=== PATIENT | male | born 1965 | race Caucasian/White ===

== ENCOUNTER → 2018-07-28 09:13 | Outpatient (CLI) | payer OTHER, SELFPAY ==
--- NOTE | 2018-07-28 | DI.MRI.S_ITS ---
PROCEDURE: MR SHOULDER LT WO CON INDICATIONS: LT SHOULDER PAIN TECHNIQUE: Noncontrast oblique coronal T2 fast spin echo with fat saturation, oblique sagittal T1 spin echo and T2 fast spin echo with fat saturation, axial T1 spin echo and T2 fast spin echo with fat saturation through the shoulder. COMPARISON: None. FINDINGS: Image quality: Excellent. Rotator cuff: The supraspinatus, infraspinatus, and subscapularis tendons appear free of destruction throughout but there is elevated focal T2 signal along the undersurface of the lateral supraspinatus tendon, indicating partial thickness tear in that area. For example, see series 8 image 11. Sagittal images demonstrate no muscle atrophy. Bones and bursae: No bone marrow contusions or fractures. There is moderately severe to severe acromioclavicular joint degeneration, and also moderate glenohumeral joint osteoarthritis.. The acromion demonstrates conventional anatomy, without an os acromiale. No pathologic subacromial-subdeltoid or subcoracoid bursal fluid is present. Capsule and soft tissues: In the absence of intra-articular contrast, the labrum and glenohumeral ligaments appear intact. The long head of the biceps tendon demonstrates normal location and morphology. The rotator interval appears normal, without fibrosis. The coracohumeral ligament is normal in thickness. IMPRESSION: Moderately severe to severe degenerative osteoarthritic change is present at the acromioclavicular joint where a near [id number] articulation at the joint interspace is present. Fibrous and osseous hypertrophy projects both superiorly and inferiorly from the a.c. joint to impinge upon the supraspinatus portion of the rotator cuff. Chronic impingement syndrome likely is present. There is mild tendinosis involving the supraspinatus tendon and also an undersurface partial-thickness lateral supraspinatus tendon tear. Degenerative osteoarthritis of the glenohumeral joint is moderate in severity, no intra-articular loose body or joint effusion is found. Dictated by: Turner Montenegro M.D. on 07/30/2018 at 11:25 Approved by: Turner Montenegro M.D. on 07/30/2018 at 11:32
== END ==
PROVIDERS: PCP Family Medicine; Visit Provider Nurse Practitioner Family
DX: M75.112 Incomplete rotator cuff tear or rupture of left shoulder, not specified as traumatic (principal); M25.512 Pain in left shoulder; M19.012 Primary osteoarthritis, left shoulder
CPT/HCPCS: 73221